=== PATIENT | female | born 1995 | race Asian ===

== ENCOUNTER 2017-11-01 02:04 | Emergency (ER) | payer OTHER ==
[2017-11-01 02:13] VITALS: TEMP 36.4
[2017-11-01 02:22] VITALS: O2SAT 98
[2017-11-01 03:21] LABS: BLOOD UREA NITROGEN 20 mg/dl (7-18); CALCIUM 8.5 mg/dl (8.5-10.1); CARBON DIOXIDE 23 mmol/L (21-32); CREATININE 0.85 mg/dl (0.60-1.20); GLUCOSE 104 mg/dl (70-99); POTASSIUM 3.3 mmol/L (3.5-5.1); SODIUM 140 mmol/L (136-145)
[2017-11-01] MEDS ORDERED: POTASSIUM CHLORIDE 10 MEQ TABCR PO STA (03:39)
[2017-11-01] MEDS ORDERED: POTASSIUM CHLORIDE 10 MEQ TABCR ONE (08:59)
[2017-11-01 09:52] VITALS: BP 98/53; PULSE 75; O2SAT 98
--- NOTE | 2017-11-01 13:28 | EMERGENCY ROOM VISIT NOTE ---
ED Visit Note First contact with patient: 08:18 I received sign out from Elen Cruz PA-C at change of shift. Pt presented with alcohol intoxication. Her alcohol level was noted to be 249.0 ml/dL I evaluated the patient after 10am, she is now alert, oriented, and appropriate. Ambulating without difficulty. She was deemed appropriate for discharge. Current/Historical Medications Unable to Obtain Active Prescriptions or Reported Meds Vital Signs Date Time Temp Pulse Resp B/P (MAP) Pulse Ox O2 Delivery O2 Flow Rate FiO2 11/01/17 09:52 75 18 98/53 98 Room Air 11/01/17 07:55 99 18 94/49 95 Room Air 11/01/17 06:44 76 18 81/44 98 Room Air 11/01/17 05:59 89 11/01/17 05:00 90 16 88/41 96 Room Air 11/01/17 03:40 91 16 100/65 100 Room Air 11/01/17 02:22 Room Air 11/01/17 02:22 98 Room Air 11/01/17 02:13 36.4 105 14 123/81 98 Room Air 11/01/17 02:10 118 Laboratory Results 11/01/17 02:42 Test 11/01/17 02:42 Anion Gap 6.0 mmol/L (3-11) Estimated GFR () 113.5 Estimated GFR (Non- 97.9 BUN/Creatinine Ratio 24.0 (10-20) Calcium Level 8.5 mg/dl (8.5-10.1) Ethyl Alcohol mg/dL 249.0 mg/dl (0-3) Medications Administered Medications (Trade) Dose Ordered Sig/Bryan Route Start Time Stop Time Status Last Admin Dose Admin Potassium Chloride (Klor-Con M10) 20 meq NOW STAT PO 11/01/17 03:39 11/01/17 03:40 DC 11/01/17 10:00 20 MEQ Departure Information Impression Primary Impression: Alcoholic intoxication Dispostion Home / Self-Care Condition GOOD Prescriptions Unable to Obtain Active Prescriptions or Reported Meds Referrals No Doctor, Assigned (PCP) Forms HOME CARE DOCUMENTATION FORM, IMPORTANT VISIT INFORMATION Patient Instructions Alcohol Intoxication - [facility], [facility] Additional Instructions Keep well-hydrated. Tylenol every 6 hours as needed for pain (Maximum 3000 mg Tylenol in 24 hr period). Follow up with family doctor and/or health services as needed. No driving for the next 24 hours. Recommend no alcohol for the next 48 hours and avoid binge drinking in the future. Return to ER sooner for chest pain, abdominal pain, worsening signs or symptoms or as needed.
--- NOTE | 2017-11-02 04:58 | EMERGENCY ROOM VISIT NOTE ---
History First contact with patient: 02:04 Chief Complaint: ALCOHOL OVERDOSE Stated Complaint: ALCOHOL Nursing Triage Summary: Per EMS pt was at [facility] drinking with friends. OPt became intoxicated and friends helped her to [facility] where she passed out and had projectile vomitting. No trauma noted. Pt responds to tactile stimuli. History of Present Illness The patient is a 22 year old female who presents to the Emergency Room with complaints of alcohol intoxication who drank a lot of alcohol. Patient was vomiting and EMS was summoned. Patient denies fall, drug use, chest pain, dyspnea, abdominal pain or any other medical complaints. Review of Systems An 10 system review of systems was completed with positives and pertinent negatives listed in the HPI. Past Medical/Surgical History None Social History Smoking Status: Unknown if Ever Smoked Smokeless Tobacco Use: No Alcohol Use: occasionally Drug Use: none Marital Status: single Occupation Status: [employer] Current/Historical Medications Unable to Obtain Active Prescriptions or Reported Meds Physical Exam Vital Signs Date Time Temp Pulse Resp B/P (MAP) Pulse Ox O2 Delivery O2 Flow Rate FiO2 11/01/17 09:52 75 18 98/53 98 Room Air 11/01/17 07:55 99 18 94/49 95 Room Air 11/01/17 06:44 76 18 81/44 98 Room Air 11/01/17 05:59 89 11/01/17 05:00 90 16 88/41 96 Room Air 11/01/17 03:40 91 16 100/65 100 Room Air 11/01/17 02:22 Room Air 11/01/17 02:22 98 Room Air 11/01/17 02:13 36.4 105 14 123/81 98 Room Air 11/01/17 02:10 118 Physical Exam PHYSICAL EXAM: VITALS: Vitals are noted on the nurse's note and reviewed by myself. Vital signs stable. GENERAL: Female with EtOH odor, in no acute distress, nondiaphoretic, well- developed well-nourished. The patient is visibly intoxicated. SKIN: The skin was without obvious lacerations, abrasions, or rashes. There is no tenting of the skin. Capillary reflex less than 2 seconds. HEENT: Normocephalic, atraumatic. PERRLA. EOMI. Conjunctiva with mild injection without icterus. Tympanic membranes without erythema or effusion bilaterally no hemotympanum. External auditory canals are clear. Nares patent bilaterally. No epistaxis. Oropharynx without erythema or exudate. Uvula midline. Oral mucosal moist. No lymphadenopathy. Neck is supple without cervical spine tenderness. HEART: Regular rate and rhythm without murmurs gallops or rubs. Peripheral pulses 2+. LUNGS: Clear to auscultation bilaterally without wheezes, rales or rhonchi. ABDOMEN: Positive bowel sounds x 4. Normal tympanic percussion. Soft, nontender, without masses or organomegaly. MUSCULOSKELETAL: Gross motor function of the upper and lower extremities intact. The patient has a staggering gait. NEUROLOGIC: The patient is visibly intoxicated. Once they were more sober they were alert and oriented to person place and time. Medical Decision & Procedures Laboratory Results 11/01/17 02:42 Test 11/01/17 02:42 Anion Gap 6.0 mmol/L (3-11) Estimated GFR () 113.5 Estimated GFR (Non- 97.9 BUN/Creatinine Ratio 24.0 (10-20) Calcium Level 8.5 mg/dl (8.5-10.1) Ethyl Alcohol mg/dL 249.0 mg/dl (0-3) Medications Administered Medications (Trade) Dose Ordered Sig/Bryan Route Start Time Stop Time Status Last Admin Dose Admin Potassium Chloride (Klor-Con M10) 20 meq NOW STAT PO 11/01/17 03:39 11/01/17 03:40 DC 11/01/17 10:00 20 MEQ ED Course Prior records/ancillary studies reviewed. Triage Nursing notes reviewed. Additional history obtained from EMS The patient's history was concerning for altered mental status and a possible alcohol overdose. Differential diagnosis: Etiologies such as alcohol intoxication, toxicologic, infection, hypoglycemia, electrolyte abnormalities, cardiac sources, intracerebral event, neurologic, as well as others were entertained. Physical examination: As above. The patient is clinically intoxicated. no trauma noted. ER treatment provided: Monitoring Aspiration precautions The patient was frequently reassessed. Diagnostic interpretation by me: Cardiac monitoring did not reveal any evidence of dysrhythmia. The labs revealed hypokalemia. The patient's blood alcohol level was 249 mg/dL. The patient's history was reviewed once they were more coherent and their intoxication cleared. The patient states they have been in good health recently and had no medical complaints. The patient admitted to consuming alcohol. No additional concerning findings were noted. The patient complained of no symptoms to suggest assault. This appears to be consistent with an isolated overdose of alcohol. By the evaluation outlined above emergent etiologies such as trauma, infection, hypoglycemia, electrolyte abnormalities, cardiac sources, intracerebral event, neurologic,as well as others were deemed relatively unlikely. The patient was informed about the findings as listed above. The patient was counseled on the dangers of excessive alcohol use. I gave my usual and customary discussion regarding this issue. All questions were answered and the patient was pleased with the treatment. Return instructions were outlined and the patient was discharged in stable condition once their mental status improved and a safe destination was confirmed. Outpatient prescription management: None Referral: The patient was referred back to their primary care physician for follow-up in 2 to 3 days for a recheck of their current condition. Medical Decision As above Medication Reconcilliation Current Medication List: was personally reviewed by me Blood Pressure Screening Patient's blood pressure: Normal blood pressure Impression Primary Impression: Alcoholic intoxication Additional Impression: Hypokalemia Departure Information Dispostion Home / Self-Care Condition GOOD Prescriptions Unable to Obtain Active Prescriptions or Reported Meds Patient Instructions My [facility] Additional Instructions Keep well-hydrated. Tylenol every 6 hours as needed for pain (Maximum 3000 mg Tylenol in 24 hr period). Follow up with family doctor and/or health services as needed. No driving for the next 24 hours. Recommend no alcohol for the next 48 hours and avoid binge drinking in the future. Return to ER sooner for chest pain, abdominal pain, worsening signs or symptoms or as needed. Problem Qualifiers Primary Impression: Alcoholic intoxication Complication of substance-induced condition: uncomplicated Qualified Codes: F10.920 - Alcohol use, unspecified with intoxication, uncomplicated
== END 2017-11-01 11:02 | disposition home or self-care (01) ==
LOC: EDBD 02:04 → C.EDA 02:08
DX: F10.920 Alcohol use, unspecified with intoxication, uncomplicated (principal); E87.6 Hypokalemia; Y90.8 Blood alcohol level of 240 mg/100 ml or more